=== PATIENT | male | born 1985 | race African-American/Black ===

== ENCOUNTER 2019-04-25 09:27 | Emergency (ER) | payer OTHER ==
[2019-04-25] MEDS ORDERED: Acetaminophen 325 MG Tab PO ONE (09:48)
--- NOTE | 2019-04-25 09:53 | EDM.PDOC ---
ED HPI GENERAL MEDICAL PROBLEM - General Chief Complaint: Respiratory Problem Stated Complaint: COUGH AND CONGESTION AND HEADACHE Time Seen by Provider: 04/25/19 09:38 Source of Information: Reports: Patient History Limitations: Reports: No Limitations - History of Present Illness INITIAL COMMENTS - FREE TEXT/NARRATIVE: 33-year-old male presents the ED with acute onset of fever chills headache nausea and some loose stools starting April 22. He drove up from [facility] where he lives with his family. One of his children were sick with similar type illness about 2 weeks ago. Clinically he has influenza likely type be due to onset of diarrhea and mild nausea. He has severe paroxysmal cough. He feels somewhat nasally congested with postnasal drip. No appetite weak dizzy and lightheaded. Not bringing up much sputum with coughing. Onset: Sudden Onset Date: 04/22/19 Duration: Day(s):, Constant Location: Reports: Head, Chest (Severe paroxysmal minimally productive cough.), Generalized (Headache), Other ( and generalized myalgia weight loss of appetite. ) Quality: Reports: Ache Severity: Severe (In all his large muscle groups.) Improves with: Reports: Medication (Tylenol and Motrin or Advil helps somewhat with the ache and fever.) Worsens with: Reports: None Context: Reports: Other (Spontaneous occurrence). Denies: Activity, Exercise, Lifting, Sick Contact, Trauma Associated Symptoms: Reports: Chest Pain, Cough, cough w sputum (Central chest pain with lower rib pain bilaterally from coughing so much.), Fever/Chills, Headaches ( Animal sputum production.), Loss of Appetite, Malaise, Weakness, Other. Denies: Confusion, Nausea/Vomiting, Rash, Seizure, Shortness of Breath, Syncope Treatments [employer]: Reports: Acetaminophen (Did have a small amount of diarrhea the first day of illness.), NSAIDS Headache Pain Score (Numeric/FACES): 8 - Related Data Allergies Allergy/AdvReac Type Severity Reaction Status Date / Time No Known Allergies Allergy Verified 04/25/19 09:40 Home Meds: Home Meds HYDROcodone/Chlorphen Polis [Hydrocodone-Chlorpheniram] 5 ml PO Q12H PRN #60 ml 04/25/19 [Rx] Oseltamivir [Tamiflu] 75 mg PO BID #10 cap 04/25/19 [Rx] Past Medical History - Past Health History Medical/Surgical History: Denies Medical/Surgical History Social & Family History - Tobacco Use Smoking Status *Q: Never Smoker - Living Situation & Occupation Living situation: Reports: Occupation: Employed ED ROS GENERAL - Review of Systems Review Of Systems: See Below Constitutional: Reports: Fever, Chills, Malaise, Weakness, Fatigue, Decreased Appetite HEENT: Reports: Sinus Problem (Feels somewhat congested in his sinuses with a postnasal drip.), Throat Pain, Other Respiratory: Reports: Cough (Severe paroxysmal cough), Sputum (Occasional sputum production.). Denies: Shortness of Breath, Wheezing, Pleuritic Chest Pain Cardiovascular: Reports: Chest Pain, Lightheadedness. Denies: Dyspnea on Exertion (Central chest pain from coughing so much), Edema, Orthopnea Endocrine: Reports: Fatigue GI/Abdominal: Reports: Diarrhea (Mild diarrhea the first day of illness April 22), Decreased Appetite. Denies: Distension, Flatus, Hematemesis : Reports: Other (Urine is dark in color.) Musculoskeletal: Reports: Muscle Pain Skin: Reports: No Symptoms (Generalized myalgia) Neurological: Reports: Dizziness (With standing), Headache, Weakness. Denies: Numbness, Pre-Existing Deficit, Syncope, Tingling, Trouble Speaking, Difficulty Walking Psychiatric: Reports: No Symptoms Hematologic/Lymphatic: Reports: No Symptoms Immunologic: Reports: No Symptoms ED EXAM, GENERAL - Physical Exam Exam: See Below Exam Limited By: No Limitations General Appearance: WD/WN, No Apparent Distress, Other (Patient is very warm to palpation. Temperatures listed at 38 by nursing staff. Her weight is 116 at the bedside respiratory 16 BP 1 5279 and O2 sats 100% on room air.) Eye Exam: Bilateral Eye: Normal Inspection, PERRL (Appreciates pain on lateral gaze bilaterally.) Ears: Normal TMs Ear Exam: Right Ear: Bleeding Throat/Mouth: Other Head: Atraumatic, Normocephalic (Oropharynx is slightly erythematous from coughing. No exudate.) Neck: Normal Inspection, Supple, Non-Tender, Full Range of Motion. No: Carotid Bruit, Lymphadenopathy (L), Lymphadenopathy (R) Respiratory/Chest: No Respiratory Distress, Lungs Clear, Normal Breath Sounds, No Accessory Muscle Use, Other Cardiovascular: Normal Peripheral Pulses, No Edema, No Gallop (Sinus tachycardia at the bedside), No Murmur (Paroxysmal cough appreciated.), No Rub, Tachycardia Peripheral Pulses: 3+: Posterior Tibial (L), Posterior Tibial (R), Dorsalis Pedis (L), Dorsalis Pedis (R) GI/Abdominal: Normal Bowel Sounds, Soft, Non-Tender, No Organomegaly, No Abnormal Bruit, No Mass, Pelvis Stable Back Exam: Normal Inspection, Full Range of Motion. No: CVA Tenderness (L), CVA Tenderness (R) Extremities: Normal Inspection, Normal Range of Motion, Non-Tender Neurological: Alert, Oriented, CN II-XII Intact, Normal Cognition Psychiatric: Normal Affect, Normal Mood Skin Exam: Warm, Dry, Intact, No Rash Course - Vital Signs Last Recorded V/S: Last Vital Signs Temp 38.0 C 04/25/19 10:08 Pulse 116 H 04/25/19 09:37 Resp 16 04/25/19 09:37 BP 152/79 H 04/25/19 09:37 Pulse Ox 100 04/25/19 09:37 - Orders/Labs/Meds Orders: Active Orders 24 hr Category Date Time Status Chest 1V Frontal [CR] Stat Exams 04/25/19 10:18 Taken Dextrose 5%-Lactated Ringers 1,000 ml Med 04/25/19 10:00 Active IV ASDIRECTED Ketorolac [Toradol] Med 04/25/19 10:00 Active 30 mg IVPUSH ONETIME Medication Orders Dextrose/Lactated Ringer's (Dextrose 5%-Lactated Ringers) 1,000 mls @ 999 mls/ hr IV ASDIRECTED [facility] Last Admin: 04/25/19 10:09 Dose: 999 mls/hr Ketorolac Tromethamine (Toradol) 30 mg IVPUSH ONETIME MEL Last Admin: 04/25/19 10:08 Dose: 30 mg Meds: Medications Generic Name Dose Route Start Last Admin Trade Name Freq PRN Reason Stop Dose Admin Dextrose/Lactated Ringer's 1,000 mls @ 999 mls/hr 04/25/19 10:00 04/25/19 10: 09 Dextrose 5%-Lactated Ringers IV 999 mls/hr ASDIRECTED [facility] Administration Ketorolac Tromethamine 30 mg 04/25/19 10:00 04/25/19 10:08 Toradol IVPUSH 30 mg ONETIME MEL Administration Discontinued Medications Generic Name Dose Route Start Last Admin Trade Name Tyson PRN Reason Stop Dose Admin Acetaminophen 975 mg 04/25/19 09:48 04/25/19 10:08 Tylenol PO 04/25/19 09:49 975 mg ONETIME ONE Administration - Radiology Interpretation Free Text/Narrative:: 33-year-old male of -[place] ancestry presents to the ED with signs and symptoms of influenza like a type B due to onset of diarrhea on the first day of illness. Associated diffuse headache paroxysmal cough generalized myalgia and complete loss of appetite. Feels very weak lightheaded with standing. He is febrile and tachycardic at the bedside. Plan IV will be D5 Ringer's lactate at open. Given Toradol 30 mg IV for relief of myalgia and headache. Tylenol 975 g by mouth for headache relief. Influenza screen will be done. - Re-Assessments/Exams Free Text/Narrative Re-Assessment/Exam: 04/25/19 10:19 influenza screen returned negative. Strongly suspect it is a false negative. A 1 view chest x-ray will be obtained to make sure not missing a pneumonia. 04/25/19 11:12 chest x-ray is within normal limits. Clinically the patient has influenza type B with a false negative test. I'm going to treat him as such. 04/25/19 11:21 I discussed the findings with the patient. The plan be to start him on Tamiflu even though he slightly outside the parameters still acutely ill with very high fever headache and severe cough. Also will do prescribed cough syrup pen test 5 mils every 12 hours. For cough relief and he will continue Motrin 600 mg every 6 hours for headache and body ache relief. No will be given to excuse him from work on Saturday and tentatively he'll build to go to work on Saturday. Departure - Departure Time of Disposition: 11:21 Disposition: Home, Self-Care 01 Condition: Fair Clinical Impression: Influenza - Discharge Information *PRESCRIPTION DRUG MONITORING PROGRAM REVIEWED*: Not Applicable *COPY OF PRESCRIPTION DRUG MONITORING REPORT IN PATIENT [place]: Not Applicable Prescriptions: HYDROcodone/Chlorphen Polis [Hydrocodone-Chlorpheniram] 5 ml PO Q12H PRN #60 ml PRN Reason: cough relief Oseltamivir [Tamiflu] 75 mg PO BID #10 cap Instructions: Influenza, Adult Referrals: PCP,None [Primary Care Provider] - Forms: ED Department Discharge, ED Return to Work/School Form Additional Instructions: Evaluation the emergency room today in regards to acute onset of fever chills harsh paroxysmal productive cough with headache and loss of appetite and initial diarrhea. 0 signs and symptoms of influenza type B virus which is going around quite badly at this point time. There is a contracted this back home in [place] and it came with you. Usually exposures within 2-3 days of developing the illness. You're considered contagious to others to cough droplets for about a week from the time you develop symptoms. X-rays negative for pneumonia. Treatment with Tamiflu 75 mg twice daily for the next 5 days. You should start feeling markedly improved after 3 tablets with lasting body aches headache and fever. In the meantime he will need to continue Motrin 600 mg every 6 hours for headache,bodyache relief. Cough syrup is to be pendulous 5 mils every 12 hours as necessary for cough relief. It is usually taken a good hour before planning to go to bed as it takes an hour to work. Stop work until April 28. Return to medical care if not markedly improved in 72 hours time. Sepsis Event Note - Evaluation Sepsis Screening Result: No Definite Risk - Focused Exam Vital Signs: Vital Signs Temp Temp Pulse Resp BP Pulse Ox 04/25/19 10:08 38.0 C 04/25/19 09:37 38.0 C 116 H 16 152/79 H 100 Date Exam was Performed: 04/25/19 Time Exam was Performed: 11:31 - My Orders Last 24 Hours: My Active Orders 04/25/19 10:00 Dextrose 5%-Lactated Ringers 1,000 ml IV ASDIRECTED Ketorolac [Toradol] 30 mg IVPUSH ONETIME 04/25/19 10:18 Chest 1V Frontal [CR] Stat - Assessment/Plan Last 24 Hours: My Active Orders 04/25/19 10:00 Dextrose 5%-Lactated Ringers 1,000 ml IV ASDIRECTED Ketorolac [Toradol] 30 mg IVPUSH ONETIME 04/25/19 10:18 Chest 1V Frontal [CR] Stat
[2019-04-25] MEDS ORDERED: Ketorolac 30 MG/ML SDV IVPUSH SCH (10:00)
[2019-04-25] MEDS ORDERED: Dextrose 5%-Lactated Ringers 1,000 ML IV SCH (10:00)
--- NOTE | 2019-04-26 17:48 | CR ---
Chest: Portable view of the chest was obtained. Comparison: No prior chest imaging. Heart size and mediastinum are normal for portable technique. Lungs are clear. Bony structures are grossly intact. Impression: 1. Nothing acute is appreciated on portable chest x-ray. Diagnostic code #1 This report was dictated in [place] Standard Time
== END 2019-04-25 11:35 | disposition home or self-care (01) ==
LOC: JD.ED 09:27
DX: J11.1 Influenza due to unidentified influenza virus with other respiratory manifestations (principal)
CPT/HCPCS: 71045; 87804; 96361; 96374; 99284; A9270; J1885; J7121; 99283